=== PATIENT | male | born 1970 | race Caucasian/White ===

== ENCOUNTER → 2016-05-02 | Outpatient (CLI) | payer BC ==
[~2016-05-02] MED LIST: GADAVIST IV PRN
--- NOTE | 2016-05-02 07:15 | DIAGNOSTIC IMAGING REPORT ---
MRI OF THE BRAIN WITHOUT AND WITH IV CONTRAST CLINICAL HISTORY: MEMORY LOSS mental status change COMPARISON STUDY: 12/27/2011 TECHNIQUE: Utilizing a 1.5 [place] magnet and dedicated coil, multiplanar, multiecho imaging of the brain was performed pre and postcontrast administration. IV administration of 10 mL of Gadavist contrast was uneventful. 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 No acute intracranial abnormality. Diffusion-weighted images show no acute ischemic insult. Postcontrast images are unremarkable. There is a small venous angioma posterior right frontal lobe. This considered a nonacute finding. Ventricular system is midline. IMPRESSION: 1. No acute intracranial abnormality. 2. 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 3. Venous angioma posterior right frontal lobe considered an incidental finding. Electronically signed by: Bob Diaz M.D. 05/02/2016 7:14 AM Dictated Date/Time: 05/02/2016 7:10 AM
== END | disposition home or self-care (01) ==
LOC: C.MRI 05:51
PROVIDERS: ATTEND Family Medicine
DX: R41.3 Other amnesia (principal); H53.452 Other localized visual field defect, left eye; Z86.73 Personal history of transient ischemic attack (TIA), and cerebral infarction without residual deficits; Q28.3 Other malformations of cerebral vessels

== ENCOUNTER → 2016-11-19 | Outpatient (CLI) | payer BC ==
--- NOTE | 2016-11-19 10:02 | DIAGNOSTIC IMAGING REPORT ---
RIGHT WRIST W/NAVICULAR MIN 3 VIEWS CLINICAL HISTORY: Right wrist pain COMPARISON: None. DISCUSSION: No fractures or dislocations are visualized. There are no erosive or destructive changes. IMPRESSION: Unremarkable conventional radiographic evaluation the right wrist. Electronically signed by: Alcides Collado M.D. 11/19/2016 10:00 AM Dictated Date/Time: 11/19/2016 10:00 AM
== END | disposition home or self-care (01) ==
LOC: C.RDSM 10:00
PROVIDERS: ATTEND Physician Assistant
DX: M25.531 Pain in right wrist (principal)